=== PATIENT | female | born 1980 | race Caucasian/White ===

== ENCOUNTER 2018-01-24 10:29 | Emergency (ER) | payer BC, OTHER ==
[2018-01-24 13:12] VITALS: BP 112/65
--- NOTE | 2018-01-26 11:07 | UC ---
Throat Pain/Nasal Octavio HPI - HPI Summary HPI Summary: 37 y/o female presents to the urgent care c/o sore throat, dry cough, nasal congestion, body aches for the past week. However sore throat is worse since yesterday. Pain w/ swallowing is 6/10. She has taking tylenol and Mucinex PO to alleviate symptoms. She also c/o of frequency on urination and wants to make sure she doesn't have a UTI. Pt denies fever, SOB, chest pain, abdominal pain, back pain, N/V/D - History of Current Complaint Chief Complaint: UCGeneralIllness Stated Complaint: COUGH SORE THROAT Time Seen by Provider: 01/24/18 12:32 Hx Obtained From: Patient Hx Last Menstrual Period: 01/12/2018 ?: No Onset/Duration: Gradual Onset, Lasting Weeks - 1 week, Still Present, Worse Since - yesterday Severity: Moderate Pain Intensity: 6 Pain Scale Used: 0-10 Numeric Cough: Nonproductive Associated Signs & Symptoms: Positive: Dysphagia, Sinus Discomfort, Nasal Discharge. Negative: Fever - Epiglottits Risk Factors Epiglottis Risk Factors: Negative - Allergies/Home Medications Allergies/Adverse Reactions: Allergies Allergy/AdvReac Type Severity Reaction Status Date / Time No Known Allergies Allergy Verified 01/24/18 11:04 PMH/Surg Hx/FS Hx/Imm Hx Previously Healthy: Yes - Pt denies PMHX - Surgical History Surgical History: Yes Surgery Procedure, Year, and Place: x2 - Family History Known Family History: Positive: None - patient denies fam hx of cardiac, respiratory or renal disease. - Social History Occupation: Employed Full-time Lives: With Family Alcohol Use: Occasionally Substance Use Type: None Smoking Status (MU): Never Smoked Tobacco - Immunization History Most Recent Influenza Vaccination: 2013 Most Recent Tetanus Shot: up to date Most Recent Pneumonia Vaccination: never Review of Systems Constitutional: Fatigue Skin: Negative Eyes: Negative ENT: Sore Throat, Nasal Discharge, Sinus Congestion Respiratory: Cough Cardiovascular: Negative Gastrointestinal: Negative Genitourinary: Frequency Motor: Negative Neurovascular: Negative Musculoskeletal: Negative Neurological: Negative Psychological: Negative Is Patient Immunocompromised?: No All Other Systems Reviewed And Are Negative: Yes Physical Exam Triage Information Reviewed: Yes Vital Signs: Initial Vital Signs Temp 98 F 01/24/18 11:06 Pulse 67 01/24/18 11:06 Resp 16 02/27/18 11:06 BP 106/62 01/24/18 11:06 Pulse Ox 100 01/24/18 11:06 - Additional Comments VITAL SIGNS: Reviewed. GENERAL: Patient is a well developed and nourished female who is sitting comfortable in the examining table. Patient is not in any acute respiratory distress. HEAD AND FACE: No signs of trauma. No ecchymosis, hematomas or skull depressions. No sinus tenderness. edematous erythematous nasal mucosa with yellowish discharge, EYES: PERRLA, EOMI x 2, No injected conjunctiva, clear watery eyes, no nystagmus. No photophobia. EARS: Hearing grossly intact. Ear canals and tympanic membranes are within normal limits. MOUTH: Positive pharynx with erythema, no exudates,no palatal petechiae. no B/ L tonsillar enlargement Uvula in midline. NECK: Supple, trachea is midline, Positive anterior cervical lymphadenopathy, no JVD, no carotid bruit, no c-spine tenderness, neck with full ROM. No meningeal signs, no Kernig's or brudzinskis signs. CHEST: Symmetric, no tenderness at palpation LUNGS: Clear to auscultation bilaterally. No wheezing or crackles. CVS: Regular rate and rhythm, S1 and S2 present, no murmurs or gallops appreciated. ABDOMEN: Soft, non-tender. No signs of distention. No rebound no guarding, and no masses palpated. Bowel sounds are normal. BACK: no lesions or masses observed, no scoliosis, no B/L CVA tenderness. EXTREMITIES: FROM in all major joints, no edema, no cyanosis or clubbing. NEURO: Alert and oriented x 3. No acute neurological deficits. Speech is normal and follows commands. SKIN: Dry and warm Throat Pain/Nasal Course/Dx - Course Course Of Treatment: 37 y/o female presents to the urgent care c/o sore throat, dry cough, nasal congestion, body aches for the past week. However sore throat is worse since yesterday. Pain w/ swallowing is 6/10. She has taking tylenol and Mucinex Po to alleviate symptoms. She aslo c/o of frequency on urination and wants to make sure she doesn't have a UTI. Pt denies fever, SOB, chest pain , abdominal pain, back pain, N/V/D. Hx obtained. Pt w/ URI on examination, Rapdi strep ordered: negative, UA ordered: +ketones. Pt request Throat cuture to be sent to lab to confirm she doen't have strep. Throat culture ordered. pt will be notified of result. Pt advised to rest, increase fluid intake, eat well and avoid strenuous exercise.Pt advised to continue taking Ibuprofen to alelviate pain and swelling. Pt Rx Tessalon tabs PO for cough. If symptoms do not improve or worsen advised to return to the urgent care or f/u with her PCP for further evaluation and treatment.Pt understood and agreed with plan of care. - Differential Dx/Diagnosis Differential Diagnosis/HQI/PQRI: Influenza, Laryngitis, Mononucleosis, Otitis Media, Pharyngitis, Sinusitis, Tonsillitis, URI Provider Diagnoses: 1- Upper Respiratory infection. 2-Dysuria. 2-Cough Discharge - Discharge Plan Condition: Stable Disposition: HOME Prescriptions: Benzonatate CAP* [Tessalon 100 MG CAP*] 100 mg PO TID PRN #21 cap PRN Reason: Cough Patient Education Materials: Upper Respiratory Infection (ED) Referrals: Dario Blackburn MD [Primary Care Provider] - 1 Week Additional Instructions: 1-Please continue taking Tylenol PO q6-8hrs prn as instructed after meals to alleviate sore throat. Increase fluid intake, eat well, rest and avoid strenuous exercise 2- Take Tessalon tabs PO to alleviate cough. 3-If symptoms do not improve or worsen please return to the urgent care or f/u with your PCP in 1 week for further evaluation and treatment.
== END 2018-01-24 13:20 | disposition home or self-care (01) ==
LOC: UCEAST 10:29
DX: J06.9 Acute upper respiratory infection, unspecified (principal); R05 Cough; R30.0 Dysuria; Z32.02 Encounter for pregnancy test, result negative
CPT/HCPCS: 81003; 84702; 87070; 87651; 99212; G0463